=== PATIENT | female | born 1990 | race Hispanic/Latino ===

== ENCOUNTER 2025-08-26 11:12 | Emergency (ER) | payer SELFPAY | END 2025-08-26 12:34 | disposition home or self-care (01) | LOC: CSHERS 11:12 | DX: J02.9 Acute pharyngitis, unspecified (principal); J20.9 Acute bronchitis, unspecified; J01.00 Acute maxillary sinusitis, unspecified; R59.0 Localized enlarged lymph nodes; H92.13 Otorrhea, bilateral | CPT/HCPCS: 87081; 87428; 87430; 99283 ==